=== PATIENT | female | born 1970 | race Caucasian/White ===

== ENCOUNTER 2021-02-25 09:55 | Emergency (ER) | payer OTHER ==
--- NOTE | 2021-02-25 10:53 | XRAY Report ---
PROCEDURE: Hand 3 View LT INDICATIONS: injury/pain/swelling ring finger TECHNIQUE: 3 views of the hand(s) acquired. COMPARISON: None FINDINGS: Bones: Minimally displaced fracture of the volar plate of the fourth middle phalange. No suspicious b trent lesions. Soft tissues: No suspicious soft tissue calcifications. Soft tissue swelling noted in the fourth dig it. IMPRESSION: Fourth middle phalange fracture. Reviewed by: Rocio Cha MD, PhD on 02/25/2021 10:52 AM PDT Approved by: Rocio Cha MD, PhD on 02/25/2021 10:52 AM PDT Station ID: [id number]
--- NOTE | 2021-02-25 10:59 | ED Physician Documentation ---
History of Present Illness - Stated complaint Stated Complaint: RING FINGER PX - Chief complaint Chief Complaint: Trauma Ext - History obtained from History obtained from: Patient - Additonal information Additional information: Patient comes emergency department chief complaint of left ring finger pain after injuring it yesterday while throwing the ball with her boys. Patient states that it was immediately painful and she thought she heard a "crack", But thought she just "jammed" the finger and decided to wait and see how is doing today. Patient states that when she woke up this morning, she found that it was tight, swollen, and bruised. Patient states it mainly hurts if she bumps it on something but otherwise has not been terribly painful or throbbing. No other injuries. No prior major injury to this finger. No other complaints at this time. Review of Systems Ten Systems: 10 systems reviewed and negative Constitutional: reports: Reviewed and negative Eyes: reports: Reviewed and negative Ears: reports: Reviewed and negative Nose: reports: Reviewed and negative Throat: reports: Reviewed and negative Cardiac: reports: Reviewed and negative Respiratory: reports: Reviewed and negative GI: reports: Reviewed and negative : reports: Reviewed and negative Skin: reports: Other (Contusion and swelling) Musculoskeletal: reports: Extremity pain, Extremity swelling Neurologic: reports: Reviewed and negative Psychiatric: reports: Reviewed and negative Endocrine: reports: Reviewed and negative Immunocompromised: reports: Reviewed and negative PD PAST MEDICAL HISTORY - Past Medical History Past Medical History: Yes Cardiovascular: None Respiratory: None Neuro: None Endocrine/Autoimmune: None GI: None GARBAGE PERSON: None : None HEENT: None Psych: None Musculoskeletal: None Derm: None - Past Surgical History Past Surgical History: Yes /GARBAGE PERSON: section - Present Medications Home Medications: Ambulatory Orders Medication Instructions Recorded Confirmed No Known Home Medications 02/25/21 02/25/21 - Allergies Allergies/Adverse Reactions: Allergies Allergy/AdvReac Type Severity Reaction Status Date / Time No Known Drug Allergies Allergy Verified 02/25/21 10:03 - Social History Does the pt smoke?: No Smoking Status: Never smoker Does the pt drink ETOH?: No Does the pt have substance abuse?: No - Immunizations Immunizations are current?: No Immunizations: TDAP >10years/unknown PD ED PE NORMAL - Vitals Vital signs reviewed: Yes - General General: Alert and oriented X 3, No acute distress, Well developed/nourished - HEENT HEENT: Atraumatic, PERRL, EOMI, Moist mucous membranes - Neck Neck: Supple, no meningeal sign - Cardiac Cardiac: Strong equal pulses - Respiratory Respiratory: No respiratory distress - Derm Derm: Warm and dry, Other (Contusion of her entire length of left ring finger with swelling. No skin breakage.) - Extremities Extremities: No deformity, Other (Edema and contusion left ring finger. Limited range of motion secondary to pain and swelling. No deformity. 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, No motor deficit, No sensory deficit, Normal speech - Psych Psych: Normal mood, Normal affect Results - Vitals Vitals: Vital Signs - 24 hr 02/25/21 10:04 Temperature 36.9 C Heart Rate 75 Respiratory 16 Rate Blood Pressure 125/72 O2 Saturation 100 Oxygen O2 Source Room air - Rads (name of study) Left hand x-ray series Radiology: Final report received, EMP read indepedently, See rad report (Fracture volar plate of middle phalanx.) PD MEDICAL DECISION MAKING - ED course Complexity details: reviewed results, re-evaluated patient, considered differential, d/w patient ED course: The patient was sent for left hand x-ray and found to have a small fracture of the volar plate of the left ring finger middle phalanx proximally. She was placed in a finger splint and we have discussed elevation and ice. I have given her orthopedics and hand contact information for follow-up. She should call within the week to set up a follow-up appointment. We have discussed the usual indications for return and the need to wear the splint until cleared by Ortho. Departure - Departure Disposition: 01 Home, Self Care Clinical Impression: Finger fracture, left Qualifiers: Encounter type: initial encounter Finger: ring finger Fracture type: closed Phalanx: middle Fracture alignment: nondisplaced Qualified Code(s): S62.655A - Nondisplaced fracture of middle phalanx of left ring finger, initial encounter for closed fracture Condition: Stable Instructions: ED Fx Finger Closed Follow-Up: Justin Correa MD [Provider Admit Priv/Credential] - Giancarlo Cervantes MD [Physician No Access] - Comments: Please wear the splint for the next several weeks, or preferably, until you are cleared by orthopedics. You may call to make an appointment to be seen within the next week for follow-up. Take ibuprofen and Tylenol as needed and use ice and elevation as much as possible to help with the swelling and discomfort.
[2021-02-25 11:12] VITALS: BP 107/68
== END 2021-02-25 11:16 | disposition home or self-care (01) ==
LOC: ED 09:55
DX: S62.625A Displaced fracture of middle phalanx of left ring finger, initial encounter for closed fracture (principal); X58.XXXA Exposure to other specified factors, initial encounter; Y93.61 Activity, american tackle football
CPT/HCPCS: 99282; 99283